=== PATIENT | female | born 1955 | race Caucasian/White ===

== ENCOUNTER 2017-04-02 10:16 | Outpatient (CLI) | payer OTHER ==
--- NOTE | 2017-04-05 16:14 | Mammography Report ---
DIGITAL SCREENING MAMMOGRAM: 04/02/2017 CLINICAL INDICATION: A 62-year-old, for screening. COMPARISON: 07/2015, 04/2014, 05/2005. TECHNIQUE: Routine CC and MLO projections were obtained of the breasts. FINDINGS: The breasts demonstrate heterogeneously dense fibroglandular parenchyma bilaterally. Coars e and punctate, typically benign calcifications are present. No suspicious masses, clustered microcal cifications, or regions of architectural distortion are identified. IMPRESSION: BENIGN FINDINGS. RECOMMENDATION: ROUTINE ANNUAL SCREENING UNLESS OTHERWISE CLINICALLY INDICATED. BIRADS CATEGORY 2-BENIGN FINDINGS. STANDARD QUALIFYING STATEMENTS 1. This examination was reviewed with the aid of Computer-Aided Detection (CAD). 2. A negative or benign imaging report should not delay biopsy if clinically suspicious findings are present. Consider surgical consultation if warranted. More than 5% of cancers are not identified by i maging. 3. Dense breasts may obscure an underlying neoplasm. JOB #: [id number] EXT JOB #:[id number]
== END 2017-04-02 10:17 | disposition home or self-care (01) ==
LOC: DI.S 10:16
PROVIDERS: ATTEND Nurse Practitioner Family
DX: Z12.31 Encounter for screening mammogram for malignant neoplasm of breast (principal)
CPT/HCPCS: 77067

== ENCOUNTER 2017-05-16 00:02 | Emergency (ER) | payer OTHER ==
--- NOTE | 2017-05-16 00:51 | XRAY Preliminary Report ---
Exam: XR RIBS W/PA CHEST LT IMPRESSION: 1. Subtle small abnormality within the left lung base region may be from atelectasis, small pulmonary contusion, aspiration, and/or infection. 2. No displaced fracture. No pneumothorax. [facility] SITE ID: [id number]
[2017-05-16] MEDS ORDERED: oxyCOD/ACETAMIN 5 MG/325 MG TABLET PO STA (01:03)
[2017-05-16] MEDS ORDERED: LIDOCAINE PATCH 5% TOP PRN (01:03)
--- NOTE | 2017-05-16 01:07 | ED Physician Documentation ---
PD HPI TRUNK INJURY - Stated complaint Stated Complaint: LT RIB PAIN - Chief complaint Chief Complaint: General - History obtained from History obtained from: Patient - History of Present Illness Location: Left chest Type of injury: Fall Timing - onset: Today Timing - details: Abrupt onset Quality: Pain, Aching Associated symtptoms: Discoloration Contributing factors: No: Anticoagulated, Other injury, Work related Where injury occured: Home Similar symptoms before: Has not had sx before Recently seen: Not recently seen - Additional information Additional information: Patient is a a 62 year old female with a history of RA who is presenting to the emergency department for left sided rib pain. Patient states that she slipped on a "slimey" step, falling and hitting her ribs. patient denies any loc or any other trauma at this time. Review of Systems Constitutional: denies: Fever, Chills Eyes: reports: Reviewed and negative Ears: reports: Reviewed and negative Nose: reports: Reviewed and negative Throat: reports: Reviewed and negative Cardiac: reports: Chest pain / pressure Respiratory: reports: Dyspnea. denies: Cough, Wheezing GI: denies: Nausea, Vomiting : denies: Hematuria Skin: reports: Rash, Lesions. denies: Laceration (s) Musculoskeletal: denies: Neck pain, Back pain, Extremity pain Neurologic: denies: Generalized weakness, Focal weakness Immunocompromised: denies: Immunocompromised PD PAST MEDICAL HISTORY - Past Medical History Past Medical History: Yes Cardiovascular: None Respiratory: None Neuro: None Endocrine/Autoimmune: None GI: None NEWSPAPER ILLUSTRATOR: None : None HEENT: None Psych: None Musculoskeletal: Rheumatoid arthritis Derm: None - Past Surgical History Past Surgical History: Yes /NEWSPAPER ILLUSTRATOR: Hysterectomy HEENT: Tonsil/Adenoidectomy - Present Medications Home Medications: Ambulatory Orders Medication Instructions Recorded Confirmed Lidocaine Patch 5% [Lidoderm Patch] 1 each TOP DAILY #10 patch 05/16/17 - Allergies Allergies/Adverse Reactions: Allergies Allergy/AdvReac Type Severity Reaction Status Date / Time No Known Drug Allergies Allergy Verified 05/16/17 00:13 - Social History Does the pt smoke?: No Smoking Status: Never smoker Does the pt drink ETOH?: Yes Does the pt have substance abuse?: No - Immunizations Immunizations are current?: Yes PD ED PE NORMAL - Vitals Vital signs reviewed: Yes - General General: Alert and oriented X 3, No acute distress - HEENT HEENT: Atraumatic, PERRL, Dentition benign - Neck Neck: Supple, no meningeal sign, No bony TTP - Cardiac Cardiac: RRR, No murmur - Respiratory Respiratory: No respiratory distress, Clear bilaterally - Abdomen Abdomen: Soft, Non distended - Extremities Extremities: No deformity, Normal ROM s pain, No calf tenderness / cord - Neuro Neuro: Alert and oriented X 3, No motor deficit, No sensory deficit, Normal speech Eye Opening: Spontaneous Motor: Obeys Commands Verbal: Oriented GCS Score: 15 PD ED PE EXPANDED - Cardiac Cardiac: Chest wall TTP (tenderness and ecchymosis of posterior lateral left chest with ecchymosis) Results - Vitals Vitals: Vital Signs - 24 hr 05/16/17 05/16/17 00:09 01:15 Temperature 36.7 C 36.8 C Heart Rate 107 H 97 Respiratory 18 16 Rate Blood Pressure 131/92 H 85/71 L O2 Saturation 98 97 Oxygen O2 Source Room air - Rads (name of study) chest/ribs Radiology: Final report received (no fracture, possible pulmonary contusion) PD MEDICAL DECISION MAKING - ED course Complexity details: reviewed old records, reviewed results, re-evaluated patient , considered differential, d/w patient, d/w family ED course: Patient was seen and examined at bedside. Imaging was ordered. when patient returned the results were reviewed. Patient was found to have a possible pulmonary contusion but no fracture, dislocation or pneumothorax. Patient was treated with lidoderm patch and percocet. patient required no further work up and was stable for discharge with outpatient follow up. Departure - Departure Disposition: 01 Home, Self Care Clinical Impression: Contusion of rib on left side Condition: Good Instructions: ED Contusion Rib Follow-Up: Rochelle López ARNP [Primary Care Provider] - Within 1 week Prescriptions: Lidocaine Patch 5% [Lidoderm Patch] 1 each TOP DAILY #10 patch Comments: Your x-ray today showed no acute fracture or dislocations, but a possible pulmonary contusion. There is no specific treatment, only pain management. It is important that you take deep breaths so that you don't get fluid in your lungs or a secondary pneumonia. These injuries take a long time to heal. You should follow up with your pmd for further pain managment if necessary, fevers or chills. You may return to the emergency department at any time for new, worsening or uncontrollable symptoms. Discharge Date/Time: 05/16/17 01:20
--- NOTE | 2017-05-16 01:16 | XRAY Report ---
EXAM: CHEST AND LEFT RIB RADIOGRAPHY EXAM DATE: 05/16/2017 12:16 AM. CLINICAL HISTORY: Fall at 2230 hrs, left rib pain as well as lower back pain. COMPARISON: None. TECHNIQUE: 1 view of the chest and 2 views of the ribs. FINDINGS: Bones: No displaced fractures demonstrated at the patient reported area of pain within the lateral lo wer left hemithorax. Lungs and pleura: Subtle small opacity seen within the left lateral lung base region. No consolidatio n, effusion, or pneumothorax. Mediastinum: Heart and mediastinal contours are unremarkable. Other: None. IMPRESSION: 1. Subtle small abnormality within the left lung base region may be from atelectasis, small pulmonary contusion, aspiration, and/or infection. 2. No displaced fracture. No pneumothorax. [facility] Referring Provider Line: [phone] SITE ID: [id number]
[2017-05-16] MEDS ORDERED: oxyCOD/ACETAMIN 5 MG/325 MG TABLET PO ONE (01:18)
[2017-05-16] MEDS ORDERED: LIDOCAINE PATCH 5% TOP ONE (01:18)
[2017-05-16 01:20] VITALS: BP 85/71
== END 2017-05-16 01:20 | disposition home or self-care (01) ==
LOC: ED 00:02
DX: S20.212A Contusion of left front wall of thorax, initial encounter (principal); W01.0XXA Fall on same level from slipping, tripping and stumbling without subsequent striking against object, initial encounter; M06.9 Rheumatoid arthritis, unspecified
CPT/HCPCS: 71101; 99283; A9270

== ENCOUNTER 2018-04-25 15:01 | Outpatient (CLI) | payer OTHER, MEDICAID ==
[2018-04-25 18:14] LABS: BASOPHILS % (AUTO) 0.3 %; EOSINOPHILS % (AUTO) 0.7 %; HGB - HEMOGLOBIN 14.7 g/dL (12.0-16.0); LYMPHOCYTES % (AUTO) 61.7 %; MEAN CORPUSCULAR HGB CONC 33.7 g/dL (32.0-36.0); MEAN CORPUSCULAR VOLUME 100.7 fL (81.0-99.0); MEAN PLATELET VOLUME 6.5 fL (7.9-10.8); MONOCYTES % (AUTO) 28.1 %; NEUTROPHILS % (AUTO) 9.2 %; PLT - PLATELET COUNT 167 10^3/uL (130-450); RED BLOOD COUNT 4.33 10^6/uL (4.20-5.40)
[2018-04-25 18:45] LABS: ALBUMIN 3.6 g/dL (3.2-5.5); ALBUMIN/GLOBULIN RATIO 0.9 (1.0-2.2); BILIRUBIN,TOTAL 0.6 mg/dL (0.2-1.0); CALCIUM 9.1 mg/dL (8.5-10.3); CREATININE 0.8 mg/dL (0.4-1.0); TOTAL PROTEIN 7.5 g/dL (6.7-8.2)
[2018-04-25 19:12] LABS: WHITE BLOOD COUNT 1.8 x10^3/uL (4.8-10.8)
[2018-04-25 19:13] LABS: ABNORMAL LYMPHS % (MANUAL) 0 %; BAND NEUTROPHILS % (MANUAL) 0 %
[2018-04-25 19:18] LABS: BASOPHILS % (MANUAL) 2 %; LYMPHOCYTES % (MANUAL) 58 %; MONOCYTES # (MANUAL) 0.5 10^3/uL (0.0-1.0); NEUTROPHILS # (MANUAL) 0.2 10^3/uL (1.5-6.6); NEUTROPHILS % (MANUAL) 12 %
[2018-04-25 19:19] LABS: DIFFERENTIAL COMMENT MANUAL DIFFERENTIAL; PLATELET ESTIMATE, MANUAL NORMAL (130-450,000) (NORMAL); PLATELET MORPHOLOGY NORMAL APPEARANCE (NORMAL); RBC MORPHOLOGY (MULTIPLE) 1+ MACROCYTOSIS (NORMAL)
== END 2018-04-25 15:02 | disposition home or self-care (01) ==
LOC: LAB.F 15:01
PROVIDERS: ATTEND Nurse Practitioner Family
DX: M06.9 Rheumatoid arthritis, unspecified (principal)
CPT/HCPCS: 36415; 80053; 85025

== ENCOUNTER 2018-06-03 08:50 | Outpatient (CLI) | payer MEDICARE ==
[2018-06-03 10:23] LABS: EOSINOPHILS % (AUTO) 1.2 %; HGB - HEMOGLOBIN 14.9 g/dL (12.0-16.0); LYMPHOCYTES # (AUTO) 1.1 10^3/uL (1.5-3.5); LYMPHOCYTES % (AUTO) 62.2 %; MEAN CORPUSCULAR HGB CONC 34.3 g/dL (32.0-36.0); MEAN CORPUSCULAR VOLUME 96.2 fL (81.0-99.0); MEAN PLATELET VOLUME 6.3 fL (7.9-10.8); MONOCYTES # (AUTO) 0.5 10^3/uL (0.0-1.0); MONOCYTES % (AUTO) 25.9 %; NEUTROPHILS % (AUTO) 9.7 %; PLT - PLATELET COUNT 149 10^3/uL (130-450); RED BLOOD COUNT 4.53 10^6/uL (4.20-5.40); RED CELL DISTRIBUTION WIDTH 14.6 % (12.0-15.0)
[2018-06-03 10:58] LABS: NEUTROPHILS # (AUTO) 0.2 10^3/uL (1.5-6.6); WHITE BLOOD COUNT 1.8 x10^3/uL (4.8-10.8)
== END 2018-06-03 08:51 | disposition home or self-care (01) ==
LOC: LAB.F 08:50
PROVIDERS: ATTEND Internal Medicine
DX: D70.9 Neutropenia, unspecified (principal)
CPT/HCPCS: 36415; 85025

== ENCOUNTER 2018-06-10 08:37 | Outpatient (CLI) | payer MEDICARE, OTHER ==
[2018-06-10 10:41] LABS: BASOPHILS % (AUTO) 0.7 %; EOSINOPHILS % (AUTO) 1.4 %; HGB - HEMOGLOBIN 14.5 g/dL (12.0-16.0); LYMPHOCYTES # (AUTO) 1.1 10^3/uL (1.5-3.5); LYMPHOCYTES % (AUTO) 60.9 %; MEAN CORPUSCULAR HEMOGLOBIN 32.4 pg (27.0-31.0); MEAN CORPUSCULAR HGB CONC 34.1 g/dL (32.0-36.0); MEAN CORPUSCULAR VOLUME 95.3 fL (81.0-99.0); MEAN PLATELET VOLUME 6.4 fL (7.9-10.8); MONOCYTES # (AUTO) 0.5 10^3/uL (0.0-1.0); MONOCYTES % (AUTO) 29.8 %; NEUTROPHILS % (AUTO) 7.2 %; PLT - PLATELET COUNT 122 10^3/uL (130-450); RED BLOOD COUNT 4.46 10^6/uL (4.20-5.40); RED CELL DISTRIBUTION WIDTH 15.2 % (12.0-15.0)
[2018-06-10 11:11] LABS: NEUTROPHILS # (AUTO) 0.1 10^3/uL (1.5-6.6); WHITE BLOOD COUNT 1.8 x10^3/uL (4.8-10.8)
[2018-06-10 11:12] LABS: RBC MORPHOLOGY (MULTIPLE) 2+ ANISOCYTOSIS (NORMAL)
== END 2018-06-10 08:38 | disposition home or self-care (01) ==
LOC: LAB.F 08:37
PROVIDERS: ATTEND Internal Medicine
DX: D70.9 Neutropenia, unspecified (principal)
CPT/HCPCS: 36415; 85025

== ENCOUNTER 2019-04-17 09:11 | Outpatient (CLI) | payer MEDICARE, OTHER ==
[2019-04-17 17:24] LABS: ALBUMIN 4.3 g/dL (3.2-5.5); ALBUMIN/GLOBULIN RATIO 1.3 (1.0-2.2); BILIRUBIN,TOTAL 0.7 mg/dL (0.2-1.0); CALCIUM 9.4 mg/dL (8.5-10.3); CREATININE 0.7 mg/dL (0.4-1.0); TOTAL PROTEIN 7.6 g/dL (6.7-8.2)
[2019-04-17 17:33] LABS: BASOPHILS % (AUTO) 0.9 %; EOSINOPHILS # (AUTO) 0.1 10^3/uL (0.0-0.7); EOSINOPHILS % (AUTO) 1.7 %; HGB - HEMOGLOBIN 14.8 g/dL (12.0-16.0); LYMPHOCYTES % (AUTO) 29.7 %; MEAN CORPUSCULAR HEMOGLOBIN 34.7 pg (27.0-31.0); MEAN CORPUSCULAR HGB CONC 33.3 g/dL (32.0-36.0); MEAN CORPUSCULAR VOLUME 104.2 fL (81.0-99.0); MEAN PLATELET VOLUME 9.2 fL (7.9-10.8); MONOCYTES # (AUTO) 0.6 10^3/uL (0.0-1.0); MONOCYTES % (AUTO) 16.9 %; NEUTROPHILS # (AUTO) 1.8 10^3/uL (1.5-6.6); NEUTROPHILS % (AUTO) 50.5 %; PLT - PLATELET COUNT 192 10^3/uL (130-450); RED BLOOD COUNT 4.26 10^6/uL (4.20-5.40); WHITE BLOOD COUNT 3.5 x10^3/uL (4.8-10.8)
== END 2019-04-17 09:12 | disposition home or self-care (01) ==
LOC: LAB.S 09:11
PROVIDERS: ATTEND Internal Medicine
DX: D70.9 Neutropenia, unspecified (principal); C91.Z0 Other lymphoid leukemia not having achieved remission
CPT/HCPCS: 36415; 80053; 85025

== ENCOUNTER 2019-08-07 09:03 | Outpatient (CLI) | payer MEDICARE, OTHER ==
[2019-08-07 17:16] LABS: BASOPHILS % (AUTO) 1.2 %; EOSINOPHILS # (AUTO) 0.1 10^3/uL (0.0-0.7); EOSINOPHILS % (AUTO) 2.8 %; HGB - HEMOGLOBIN 14.4 g/dL (12.0-16.0); LYMPHOCYTES # (AUTO) 1.1 10^3/uL (1.5-3.5); LYMPHOCYTES % (AUTO) 34.9 %; MEAN CORPUSCULAR HEMOGLOBIN 32.9 pg (27.0-31.0); MEAN CORPUSCULAR HGB CONC 31.9 g/dL (32.0-36.0); MEAN CORPUSCULAR VOLUME 103.2 fL (81.0-99.0); MEAN PLATELET VOLUME 8.6 fL (7.9-10.8); MONOCYTES # (AUTO) 0.6 10^3/uL (0.0-1.0); MONOCYTES % (AUTO) 16.8 %; NEUTROPHILS # (AUTO) 1.5 10^3/uL (1.5-6.6); NEUTROPHILS % (AUTO) 44.3 %; PLT - PLATELET COUNT 190 10^3/uL (130-450); RED BLOOD COUNT 4.38 10^6/uL (4.20-5.40); RED CELL DISTRIBUTION WIDTH 14.7 % (12.0-15.0); WHITE BLOOD COUNT 3.3 x10^3/uL (4.8-10.8)
== END 2019-08-07 09:04 | disposition home or self-care (01) ==
LOC: LAB.S 09:03
PROVIDERS: ATTEND Internal Medicine
DX: D70.9 Neutropenia, unspecified (principal); C91.Z0 Other lymphoid leukemia not having achieved remission
CPT/HCPCS: 36415; 85025

== ENCOUNTER 2020-05-28 09:04 | Outpatient (CLI) | payer MEDICARE, OTHER ==
[2020-05-28 15:48] LABS: ALBUMIN 4.1 g/dL (3.2-5.5); ALBUMIN/GLOBULIN RATIO 1.4 (1.0-2.2); BILIRUBIN,TOTAL 0.5 mg/dL (0.2-1.0); CALCIUM 9.6 mg/dL (8.5-10.3); CREATININE 0.7 mg/dL (0.4-1.0); TOTAL PROTEIN 7.1 g/dL (6.7-8.2)
== END 2020-05-28 09:05 | disposition home or self-care (01) ==
LOC: LAB.S 09:04
PROVIDERS: ATTEND Internal Medicine
DX: C91.Z0 Other lymphoid leukemia not having achieved remission (principal)
CPT/HCPCS: 36415; 80053

== ENCOUNTER 2020-10-18 08:00 | Outpatient (CLI) | payer MEDICARE, OTHER ==
[2020-10-18 15:03] LABS: BASOPHILS % (AUTO) 0.7 %; EOSINOPHILS # (AUTO) 0.1 10^3/uL (0.0-0.7); HCT - HEMATOCRIT 44.2 % (37.0-47.0); HGB - HEMOGLOBIN 14.7 g/dL (12.0-16.0); LYMPHOCYTES # (AUTO) 0.6 10^3/uL (1.5-3.5); MEAN CORPUSCULAR HEMOGLOBIN 34.9 pg (27.0-31.0); MEAN CORPUSCULAR HGB CONC 33.3 g/dL (32.0-36.0); MEAN PLATELET VOLUME 8.7 fL (7.9-10.8); MONOCYTES % (AUTO) 16.8 %; NEUTROPHILS # (AUTO) 4.3 10^3/uL (1.5-6.6); NEUTROPHILS % (AUTO) 71.2 %; PLT - PLATELET COUNT 170 10^3/uL (130-450); RED BLOOD COUNT 4.21 10^6/uL (4.20-5.40); RED CELL DISTRIBUTION WIDTH 13.9 % (12.0-15.0); WHITE BLOOD COUNT 6.1 x10^3/uL (4.8-10.8)
== END 2020-10-18 23:59 | disposition home or self-care (01) ==
LOC: LAB.S 08:00
PROVIDERS: ATTEND Physician Assistant
DX: R50.9 Fever, unspecified (principal); Z20.822 Contact with and (suspected) exposure to COVID-19
CPT/HCPCS: 36415; 85025; U0004

== ENCOUNTER 2020-10-18 17:40 | Emergency (ER) | payer MEDICARE, OTHER ==
--- OUTSIDE RECORDS SUMMARY | 2020-10-18 17:44 | EXTERNAL MEDICAL SUMMARY RPT | Continuity of Care Document ---
:1955 Demographics Phone Unavailable Preferred Language Unknown Marital Status Unknown Sikhism Affiliation Unknown Race Unknown Ethnic Group Unknown Author Organization [facility] Address [address] [phone] Phone Care Team Providers Name Role Phone Rochelle NELSON, Unavailable Unavailable Medications date description facility [id number] FOLIC ACID [facility] [id number] METHOTREXATE SODIUM TABS [facility] [id number] COBALAMIN COMBINATIONS [facility] [id number] FOLIC [facility]ID [facility] [phone] METHOTREXATE SODIUM TABS [facility] Problems date description facility [id number] Health-related behavior [facility] [phone] Former smoker [facility] [id number] Fever, unspecified [facility] [phone] Fever [facility] [phone] Details of drug misuse behavior [facility] [phone] COVID19 Testing [facility] [id number] CBC W/Diff/Plt [facility] [id number] Alcohol use [facility] [id number] Alcohol intake [facility] Procedures date description facility [id number] COVID19 Testing [facility] [phone] CBC W/Diff/Plt [facility] Vital Signs date measurement value source 20201018 weight_standard 156.4 lb 20201018 weight_metric 70.94 kg 20201018 temperature_standard 100.3 F 20201018 temperature_metric 37.94 C [id number] respiration_rate 16 /min [id number] height_standard 64 in [id number] height_metric 162.56 cm 20201018 heart_rate 123 /min 20201018 BP_systolic 130 mm[Hg] 20201018 BP_diastolic 77 mm[Hg] 20201018 BMI 26.94 kg/m2
--- OUTSIDE RECORDS SUMMARY | 2020-10-18 18:03 | EXTERNAL MEDICAL SUMMARY RPT | Continuity of Care Document ---
:1955 Demographics Phone Unavailable Preferred Language Unknown Marital Status Unknown Yazdanism Affiliation Unknown Race Unknown Ethnic Group Unknown Author Organization [place] Address [address] [phone] Phone Care Team Providers Name Role Phone Rochelle NELSON, Unavailable Unavailable Medications date description facility [id number] FOLIC ACID [facility] [id number] METHOTREXATE SODIUM TABS [facility] [phone] COBALAMIN COMBINATIONS [facility] [id number] FOLIC ACID [facility] [phone] METHOTREXATE SODIUM TABS [facility] Problems date description facility [id number] Health-related behavior [facility] [id number] Former smoker [facility] [phone] Fever, unspecified [facility] [id number] Fever [facility] [id number] Details of drug misuse behavior [facility] [id number] COVID19 Testing [facility] [id number] CBC W/Diff/Plt [facility] [phone] Alcohol use [facility] [phone] Alcohol [facility] Procedures date description facility [id number] COVID19 Testing [facility] [phone] CBC W/Diff/Plt [facility] Vital Signs date measurement value source 20201018 weight_standard 156.4 lb 20201018 weight_metric 70.94 kg 20201018 temperature_standard 100.3 F 20201018 temperature_metric 37.94 C 24148010 respiration_rate 16 /min [id number] height_standard 64 in [id number] height_metric 162.56 cm 20201018 heart_rate 123 /min 20201018 BP_systolic 130 mm[Hg] 20201018 BP_diastolic 77 mm[Hg] 20201018 BMI 26.94 kg/m2
--- NOTE | 2020-10-18 18:11 | ED Physician Documentation ---
History of Present Illness - Stated complaint Stated Complaint: FEVER - Chief complaint Chief Complaint: Fever - History obtained from History obtained from: Patient - Additonal information Additional information: 65-year-old woman with history of rheumatoid arthritis, on methotrexate. She has a history of idiopathic neutropenia she was seen at urgent care and referred here for further evaluation and treatment after she had labs showing a white count of 6.1 with normal neutrophil count. She had a fever for 2 days with no other symptoms. T-max was 103.5. She denies runny nose, cough, sore throat, abdominal pain, diarrhea, urinary complaints. She is fully immunized against Covid having had her second Pfizer shot sometime in August. She has a Covid test pending from the urgent care. Review of Systems Ten Systems: 10 systems reviewed and negative Constitutional: reports: Fever, Chills. denies: Myalgias, Fatigue Nose: denies: Rhinorrhea / runny nose Throat: denies: Sore throat Respiratory: denies: Dyspnea, Cough PD PAST MEDICAL HISTORY - Past Medical History Cardiovascular: None Respiratory: None Endocrine/Autoimmune: None GI: None ENERGY DIRECTOR: None : None HEENT: None Psych: None Musculoskeletal: Rheumatoid arthritis Derm: None - Past Surgical History Past Surgical History: Yes /ENERGY DIRECTOR: Hysterectomy HEENT: Tonsil/Adenoidectomy - Present Medications Home Medications: Ambulatory Orders Medication Instructions Recorded Confirmed Levofloxacin 750 mg PO DAILY #9 tablet 10/18/20 Methotrexate [Methotrexate Sodium] 6 mg PO PRN PRN 10/18/20 10/18/20 - Allergies Allergies/Adverse Reactions: Allergies Allergy/AdvReac Type Severity Reaction Status Date / Time No Known Drug Allergies Allergy Verified 10/18/20 17:44 - Social History Does the pt smoke?: No Smoking Status: Never smoker Does the pt drink ETOH?: Yes Does the pt have substance abuse?: No - Immunizations Immunizations are current?: Yes PD ED PE NORMAL - Vitals Vital signs reviewed: Yes - General General: Alert and oriented X 3, No acute distress - HEENT HEENT: Pharynx benign - Neck Neck: Supple, no meningeal sign, No bony TTP - Cardiac Cardiac: RRR, No murmur - Respiratory Respiratory: No respiratory distress, Clear bilaterally - Abdomen Abdomen: Normal bowel sounds, Soft, Non tender - Back Back: No CVA TTP, No spinal TTP - Derm Derm: Normal color, Warm and dry, No rash - Extremities Extremities: No edema, No calf tenderness / cord - Neuro Neuro: Alert and oriented X 3, Normal speech Results - Vitals Vitals: Vital Signs - 24 hr 10/18/20 10/18/20 10/18/20 17:46 18:09 18:34 Temperature 37.3 C 37.1 C Heart Rate 111 H 110 H 100 Respiratory 18 20 Rate Blood Pressure 120/68 120/68 116/74 O2 Saturation 96 96 10/18/20 10/18/20 19:09 19:30 Temperature 37.1 C 37.1 C Heart Rate 99 94 Respiratory 16 16 Rate Blood Pressure 110/85 H 127/82 H O2 Saturation 96 96 Oxygen O2 Source Room air - Labs Labs: Laboratory Tests 10/18/20 10/18/20 18:20 18:45 Lactic Acid 0.6 Urine Color YELLOW Urine Clarity HAZY Urine pH 6.0 Ur Specific [place] 1.020 Urine Protein NEGATIVE Urine Glucose (UA) NEGATIVE Urine Ketones 40 H Urine Occult Blood NEGATIVE Urine Nitrite NEGATIVE Urine Bilirubin NEGATIVE Urine Urobilinogen 0.2 (NORMAL) Ur Leukocyte Esterase TRACE H Urine RBC 0-5 Urine WBC 4-5 Ur Squamous Epith Cells MANY Squamous H Urine Bacteria Few Urine Mucus Moderate Strands Urine Culture Comments NOT INDICATED - Rads (name of study) 2v CXR Radiology: EMP read contemporaneously ([facility]) PD MEDICAL DECISION MAKING - ED course ED course: 65-year-old woman presents with fever without a source. Work-up here demonstrates that she has right lower lobe pneumonia. Had outpatient labs done earlier today showing a white count of 6, no neutropenia, she has a Covid test pending. Initial choice of antibiotics, amoxicillin azithromycin was eschewed because does not react well with the methotrexate. Departure - Departure Disposition: 01 Home, Self Care Clinical Impression: Fever Qualifiers: Fever type: due to other condition Qualified Code(s): R50.81 - Fever presenting with conditions classified elsewhere Pneumonia Qualifiers: Pneumonia type: due to unspecified organism Laterality: right Lung location: lower lobe of lung Qualified Code(s): J18.9 - Pneumonia, unspecified organism Condition: Stable Record reviewed to determine appropriate education?: Yes Instructions: Pneumonia Dc Prescriptions: Levofloxacin 750 mg PO DAILY #9 tablet Comments: Call your doctor to arrange a follow-up appointment, make the next available appointment. In the interim, return anytime if worse or if new symptoms develop. Discharge Date/Time: 10/18/20 19:50
[2020-10-18 18:54] LABS: GLUCOSE, URINE (UA) NEGATIVE (NEGATIVE); KETONES,URINE (UA) 40 mg/dL (NEGATIVE); LEUKOCYTE ESTERASE, URINE TRACE (NEGATIVE); NITRITE,URINE NEGATIVE (NEGATIVE); OCCULT BLOOD,URINE NEGATIVE (NEGATIVE); PROTEIN,URINE NEGATIVE (NEGATIVE); UROBILINOGEN,URINE 0.2 (NORMAL) E.U./dL (NORMAL)
[2020-10-18 18:56] LABS: CLARITY,URINE HAZY (CLEAR)
[2020-10-18 18:57] LABS: BILIRUBIN,URINE NEGATIVE (NEGATIVE); ICTOTEST,URINE NEGATIVE
[2020-10-18 19:01] LABS: BACTERIA,URINE Few /HPF (None Seen); MUCUS,URINE Moderate Strands; RBC,URINE 0-5 /HPF (0-5); SQUAMOUS EPITHELIAL CELL,UR MANY Squamous (<= Few)
[2020-10-18] MEDS ORDERED: levoFLOXacin 250 MG TABLET PO STA (19:21)
[2020-10-18 19:35] VITALS: BP 127/82
--- NOTE | 2020-10-18 19:46 | XRAY Report ---
PROCEDURE: Chest 2 View X-Ray INDICATIONS: fever TECHNIQUE: 2 view(s) of the chest. COMPARISON: None. FINDINGS: Surgical changes and devices: None. Lungs and pleura: An infiltrate is seen in the right lower lobe consistent with pneumonia. Mediastinum: Mediastinal contours are normal. Heart size is normal. Bones and chest wall: No suspicious bony abnormalities. Soft tissues appear unremarkable. IMPRESSION: Right lower lobe pneumonia. Reviewed by: Moises Ortiz on 10/18/2020 7:44 PM PDT Approved by: Moises Ortiz on 10/18/2020 7:44 PM PDT Station ID: [id number]
== END 2020-10-18 19:50 | disposition home or self-care (01) ==
LOC: ED 17:40
DX: J18.9 Pneumonia, unspecified organism (principal); R50.81 Fever presenting with conditions classified elsewhere; M06.9 Rheumatoid arthritis, unspecified; Z20.822 Contact with and (suspected) exposure to COVID-19
CPT/HCPCS: 36415; 71046; 81001; 83605; 85025; 87040; 99283; 99284; A9270; U0004; 87086

== ENCOUNTER 2023-05-19 08:00 | Outpatient (CLI) | payer MEDICARE ==
--- NOTE | 2023-05-19 19:31 | XRAY Report ---
PROCEDURE: Chest 2 View X-Ray INDICATIONS: CHEST PAIN, RIGHT TECHNIQUE: 2 views of the chest were obtained. COMPARISON: None. FINDINGS: Surgical changes and devices: None. Lungs and pleura: No pleural effusions or pneumothorax. Lungs are clear. Mediastinum: Mediastinal contours appear normal. Heart size is normal. Bones and chest wall: No suspicious bony lesions. Overlying soft tissues appear unremarkable. IMPRESSION: Normal two-view chest x-ray Reviewed by: Boo Diaz MD on 05/19/2023 6:29 PM [facility] Approved by: Boo Diaz MD on 05/19/2023 6:29 PM [facility] Station ID: [id number]
== END 2023-05-19 23:59 | disposition home or self-care (01) ==
LOC: DI.S 08:00
PROVIDERS: ATTEND Emergency Medicine
DX: R07.89 Other chest pain (principal)
CPT/HCPCS: 36415; 80053; 85025; 85379

== ENCOUNTER 2023-05-19 14:29 | Outpatient (CLI) | payer MEDICARE ==
[2023-05-19 19:52] LABS: BASOPHILS # (AUTO) 0.1 10^3/uL (0.0-0.1); BASOPHILS % (AUTO) 1.1 %; EOSINOPHILS # (AUTO) 0.1 10^3/uL (0.0-0.7); EOSINOPHILS % (AUTO) 1.1 %; HCT - HEMATOCRIT 40.9 % (37.0-47.0); HGB - HEMOGLOBIN 13.7 g/dL (12.0-16.0); LYMPHOCYTES # (AUTO) 1.5 10^3/uL (1.5-3.5); MEAN CORPUSCULAR HEMOGLOBIN 36.1 pg (27.0-31.0); MEAN CORPUSCULAR HGB CONC 33.5 g/dL (32.0-36.0); MEAN CORPUSCULAR VOLUME 107.9 fL (81.0-99.0); MEAN PLATELET VOLUME 8.5 fL (7.9-10.8); MONOCYTES # (AUTO) 0.7 10^3/uL (0.0-1.0); MONOCYTES % (AUTO) 10.7 %; NEUTROPHILS # (AUTO) 4.3 10^3/uL (1.5-6.6); NEUTROPHILS % (AUTO) 63.9 %; PLT - PLATELET COUNT 263 10^3/uL (130-450); RED BLOOD COUNT 3.79 10^6/uL (4.20-5.40); RED CELL DISTRIBUTION WIDTH 14.2 % (12.0-15.0); WHITE BLOOD COUNT 6.6 x10^3/uL (4.8-10.8)
[2023-05-19 20:09] LABS: ALBUMIN/GLOBULIN RATIO 1.5 (1.0-2.2); BILIRUBIN,TOTAL 0.5 mg/dL (0.2-1.0); CALCIUM 9.7 mg/dL (8.5-10.3); CREATININE 0.8 mg/dL (0.6-1.3); POTASSIUM 4.6 mmol/L (3.5-4.5); TOTAL PROTEIN 6.7 g/dL (6.4-8.9)
== END 2023-05-19 14:30 | disposition home or self-care (01) ==
LOC: LAB.S 14:29
PROVIDERS: ATTEND Emergency Medicine
DX: R07.89 Other chest pain (principal)
CPT/HCPCS: 36415; 80053; 85025; 85379

== ENCOUNTER 2023-08-11 11:33 | Outpatient (CLI) | payer MEDICARE ==
[2023-08-11 15:04] LABS: BASOPHILS # (AUTO) 0.1 10^3/uL (0.0-0.1); BASOPHILS % (AUTO) 1.2 %; EOSINOPHILS # (AUTO) 0.1 10^3/uL (0.0-0.7); EOSINOPHILS % (AUTO) 1.8 %; HCT - HEMATOCRIT 42.8 % (37.0-47.0); HGB - HEMOGLOBIN 14.3 g/dL (12.0-16.0); LYMPHOCYTES # (AUTO) 1.5 10^3/uL (1.5-3.5); LYMPHOCYTES % (AUTO) 30.3 %; MEAN CORPUSCULAR HEMOGLOBIN 35.5 pg (27.0-31.0); MEAN CORPUSCULAR HGB CONC 33.4 g/dL (32.0-36.0); MEAN CORPUSCULAR VOLUME 106.2 fL (81.0-99.0); MEAN PLATELET VOLUME 8.6 fL (7.9-10.8); MONOCYTES # (AUTO) 0.5 10^3/uL (0.0-1.0); NEUTROPHILS # (AUTO) 2.8 10^3/uL (1.5-6.6); NEUTROPHILS % (AUTO) 56.5 %; PLT - PLATELET COUNT 276 10^3/uL (130-450); RED BLOOD COUNT 4.03 10^6/uL (4.20-5.40); RED CELL DISTRIBUTION WIDTH 13.6 % (12.0-15.0)
[2023-08-11 15:49] LABS: ALBUMIN 3.9 g/dL (3.2-5.5); ALBUMIN/GLOBULIN RATIO 1.6 (1.0-2.2); BILIRUBIN,TOTAL 0.5 mg/dL (0.2-1.0); CALCIUM 10.5 mg/dL (8.5-10.3); CREATININE 0.7 mg/dL (0.6-1.3); POTASSIUM 4.5 mmol/L (3.5-4.5); TOTAL PROTEIN 6.4 g/dL (6.4-8.9)
== END 2023-08-11 11:34 | disposition home or self-care (01) ==
LOC: LAB.S 11:33
PROVIDERS: ATTEND Internal Medicine
DX: C91.Z0 Other lymphoid leukemia not having achieved remission (principal)
CPT/HCPCS: 36415; 80053; 85025

== ENCOUNTER 2023-12-15 15:17 | Emergency (ER) | payer MEDICARE ==
--- NOTE | 2023-12-15 20:30 | Ultrasound Report ---
PROCEDURE: Duplex Ext Veins Right INDICATIONS: RUE swelling at elbow r/o DVT TECHNIQUE: Real-time imaging, as well as color and pulse Doppler interrogation, were performed of the lower extr emity deep veins from the inguinal ligament to the popliteal fossa. Attempted visualization of the ca lf veins was performed. COMPARISON: None. FINDINGS: There is occlusive thrombus in the right axillary vein. There is a nonocclusive thrombus i n the brachial and basilic veins. The right internal jugular, subclavian and cephalic veins are amber lly compressible, and free of intraluminal thrombus. IMPRESSION: Occlusive thrombus in the right axillary vein and nonocclusive thrombus in the brachial and basilic v eins. Agree with preliminary interpretation provided to the ordering provider by the ultrasound technologis t. Reviewed by: Nirmala Heredia MD, PhD on 12/15/2023 8:28 PM PDT Approved by: Nirmala Heredia MD, PhD on 12/15/2023 8:28 PM PDT Station ID: [id number]
--- NOTE | 2023-12-15 20:46 | ED Physician Documentation ---
PD HPI UPPER EXT INJURY - Stated complaint Stated Complaint: ELBOW SWELLING - Chief complaint Chief Complaint: Ext Problem - Additonal information Additional information: 68 yo female w/ hx of rheumatoid arthritis "thats in her blood" presented originally to Urgent care for right elbow pain and swelling and was sent to ER for US. No fevers or chills, no recent illnesses, no redness, mild pain, not hot to the touch. Pt says she noticed some mild pain 2 days ago in her armpit and pain spread down to elbow and awoke this am with generalized right elbow swelling and no pain. No hx of cancer or blood clotting disorders. PD PAST MEDICAL HISTORY - Past Medical History Past Medical History: Yes Cardiovascular: None Respiratory: None Neuro: None Endocrine/Autoimmune: None GI: None RELISH MAKER: None : None HEENT: None Psych: None Musculoskeletal: Rheumatoid arthritis Derm: None - Past Surgical History Past Surgical History: Yes /RELISH MAKER: Hysterectomy HEENT: Tonsil/Adenoidectomy - Present Medications Home Medications: Ambulatory Orders Medication Instructions Recorded Confirmed Methotrexate [Methotrexate Sodium] 6 mg PO PRN PRN 10/18/20 10/18/20 Rivaroxaban [Xarelto] 15 mg PO BID 21 Days #42 tablet 12/15/23 - Allergies Allergies/Adverse Reactions: Allergies Allergy/AdvReac Type Severity Reaction Status Date / Time No Known Drug Allergies Allergy Verified 12/15/23 15:38 - Social History Does the pt smoke?: No Smoking Status: Never smoker Does the pt drink ETOH?: Yes Does the pt have substance abuse?: No - Immunizations Immunizations are current?: Yes - POLST Patient has POLST: No PD ED PE NORMAL - Vitals Vital signs reviewed: Yes - General General: Alert and oriented X 3, No acute distress, Well developed/nourished - Neck Neck: Supple, no meningeal sign - Cardiac Cardiac: RRR, No murmur, No gallop - Respiratory Respiratory: No respiratory distress, Clear bilaterally - Derm Derm: Normal color, Warm and dry, No rash - Free text exam Free text exam: Right upper extremity, no pitting edema from elbow to armpit there is some notable swelling mostly around the elbow region full range of motion no tenderness with flexion or extension of the elbow no tenderness with flexion or extension of the shoulder. Strong radial pulse. Results - Vitals Vitals: Oxygen O2 Source Room air - Rads (name of study) Right upper extremity venous duplex Relevant Findings:: Final report received, EMP independent interpretation of test, Other (Occlusive thrombus in the right axillary vein and nonocclusive thrombus in the brachial and basilic vein) PD Medical Decision Making - ED course ED course: 68-year-old female presents emergency department for right upper extremity swelling she was sent here from urgent care for concerns of lymphedema. Ultras ound was complete for further evaluation of this right upper extremity swelling and she was found to have a DVT in the right axillary vein and nonocclusive thrombus in the brachial and basilic vein. She was started on blood thinner here and given a Lovenox shot here 1 mg/kg and a prescription of Xarelto was sent to patient's preferred pharmacy she is told to follow-up with her primary care provider and her heme-onc physician as soon as possible she understands return precautions she denies any chest pain or shortness of breath no unilateral calf pain or tenderness or swelling. Departure - Departure Disposition: 01 Home, Self Care Clinical Impression: DVT of upper extremity (deep vein thrombosis) Qualifiers: Chronicity: acute Laterality: right Instructions: Rivaroxaban oral tablets, DVT Tx Prescriptions: Rivaroxaban [Xarelto] 15 mg PO BID 21 Days #42 tablet Comments: Thank you for trusting us with your care, we have in fact found a DVT in your right upper extremity. This is very rare. Please follow up with your PCP as soon as possible to let them know about todays ER visit and your right upper extremity DVT. If you start to develop any chest pain or shortness of breath please present back to the ER immediately. We have given you a 60mg shot of Lovenox here in the ER and I have sent prescription of Xarelto, also known as Rivaroxaban. You will take 15mg twice a day for the next 21 days and then your primary care provider will need to send a script in to transition to 20mg one daily. You are at risk for bleeding so keep this in mind for any falls or tra carloz. Please have a low threshold to present back to ER if you notice any worsening symptoms, Shortness of breath, numbness or tingling, limb color change or any other emergent symptoms. PT NAME: TOÑO ORTIZ MR#: [id number] REG ER/ED AGE: 68 CI DT/TM: 12/15/2303/30/1816 PCP: TELLY SCHAEFER MD : [id number] ATT: SEX: F ORD: Jay Merritt [facility] EXAM: [id number] US/VENR ([id number]) PROCEDURE: Duplex Ext Veins Right INDICATIONS: RUE swelling at elbow r/o DVT TECHNIQUE: Real-time imaging, as well as color and pulse Doppler interrogation, were performed of the lower extremity deep veins from the inguinal ligament to the popliteal fossa. Attempted visualization of the calf veins was performed. COMPARISON: None. FINDINGS: There is occlusive thrombus in the right axillary vein. There is a nonocclusive thrombus in the brachial and basilic veins. The right internal jugular, subclavian and cephalic veins are normally compressible, and free of intraluminal thrombus. IMPRESSION: Occlusive thrombus in the right axillary vein and nonocclusive thrombus in the brachial and basilic veins. Agree with preliminary interpretation provided to the ordering provider by the aeronautical engineering technologist. Reviewed by: Nirmala Heredia MD, PhD on 12/15/2023 8:28 PM PDT Approved by: Nirmala Heredia MD, PhD on 12/15/2023 8:28 PM PDT Station ID: [id number] Report Electronically Signed by Nirmala Heredia MD 12/15/23202512/15/232027 cc: Jay Silva DNP; TELLY SCHAEFER MD Forms: PCP List Discharge Date/Time: 12/15/23 21:12
[2023-12-15] MEDS: ENOXAPARIN 60 MG/0.6 ML SYRINGE SUBQ STA (21:04)
[2023-12-15 21:19] VITALS: BP 147/78; O2SAT 99
== END 2023-12-15 21:12 | disposition home or self-care (01) ==
LOC: ED 15:17
DX: I82.621 Acute embolism and thrombosis of deep veins of right upper extremity (principal); Z79.899 Other long term (current) drug therapy
CPT/HCPCS: 93971; 96372; 99284; J1650